=== PATIENT | male | born 1950 ===

== ENCOUNTER 2019-09-07 07:38 | Outpatient (CLI) | payer OTHER | END 2019-09-07 07:42 | disposition home or self-care (01) | LOC: NUCLEAR 07:38 | PROVIDERS: ATTEND Internal Medicine | DX: I25.10 Atherosclerotic heart disease of native coronary artery without angina pectoris (principal); I65.23 Occlusion and stenosis of bilateral carotid arteries; I11.9 Hypertensive heart disease without heart failure; E78.2 Mixed hyperlipidemia; E11.29 Type 2 diabetes mellitus with other diabetic kidney complication | CPT/HCPCS: 78452; 93017; 93306; 93880; A9500 ==